=== PATIENT | female | born 1960 | race Caucasian/White ===

== ENCOUNTER 2017-01-23 12:39 | Emergency (ER) | payer MEDICARE ==
[~2017-01-23] VITALS: Ht 162.6 cm; Wt 72.6 kg
--- OUTSIDE RECORDS SUMMARY | 2017-01-23 12:47 | XMS REPORT | Continuity of Care Document ---
Author Author 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 11/22/2008 NILS NUNEZ APRN 788.41 URINARY FREQUENCY 11/22/2008 NILS NUNEZ APRN 788.63 URINARY URGENCY 11/12/2010 NILS NUNEZ APRN 627.2 SYMPTOMATIC MENOPAUSAL OR FEMALE CLIMACTERIC STATES 11/12/2010 NILS NUNEZ APRN 780.50 UNSPECIFIED SLEEP DISTURBANCE 11/12/2010 NILS NUNEZ APRN V72.31 SCOUTS EXAM, ROUTINE 11/12/2010 NILS NUNEZ APRN V76.12 MAMMOGRAM SCREENING 12/08/2010 NILS NUNEZ APRN E 278.02 OVERWEIGHT 12/08/2010 NILS NUNEZ APRN V72.60 LABORATORY EXAMINATION UNSPECIFIED 01/03/2011 NILS NUNEZ APRN 595.2 OTHER CHRONIC CYSTITIS 09/30/2011 NILS NUNEZ APRN E 682.0 CELLULITIS AND ABSCESS OF FACE 08/23/2013 NILS NUNEZ APRN E 623.5 LEUKORRHEA NOT SPECIFIED INFECTIVE Procedures Code [place] [address] UA LONG DIP 08/23 94229 CULTURE UROGENITAL 08/23/2013 31184 CULTURE URINE Results Encounters ACCT No. Visit Date/Time Discharge Status Pt. Type Provider Facility Loc./Unit Complaint [id number] 08/23/2013 13:27:00 08/23/2013 23: 59:59 CLS Outpatient NILS NUNEZ APRN
--- NOTE | 2017-01-23 14:54 | ED GI ---
General Chief Complaint: Abdominal/GI Problems Stated Complaint: UMBILICAL HERNIA/PAIN Nursing Triage Note: C/O intermittant abd pain since yesterday. Pt is concerned about a abd hernia repair that was done approx 20 yrs ago. No vomiting or diarrhea. No abdominal protrusion noted. Sepsis Screen: No Definite Risk Source of Information: Patient Exam Limitations: No Limitations History of Present Illness Time Seen By Provider: 14:54 Initial Comments 56-year-old female patient presents to the emergency department with complaints of periumbilical abdominal pain beginning yesterday. Patient does report having a previous umbilical hernia repair 20 years ago. Denies any bulges or mass. Reports pain radiates across the abdomen bilaterally in a belt-like distribution. Timing/Duration: 1 Day, Intermittent Severity/Quality: Aching, Sharp (occasionally sharp pain radiates accross the abdomen in a belt like distribution) Location: Periumbilical Activities at Onset: None Modifying Factors: Worsens With Other (denies modifying factors) Allergies and Home Medications Allergies Coded Allergies: Penicillins (Verified Allergy, Unknown, 01/23/17) Home Medications Ciprofloxacin HCl 500 Mg Tablet, 500 MG PO BID, #14 Ref 0 Prescribed by: DELMER SMITH on 01/23/171708 Metronidazole 500 Mg Tablet, 500 MG PO Q8H, #21 Ref 0 Prescribed by: DELMER SMITH on 01/23/171708 Ondansetron 8 Mg Tab.rapdis, 8 MG PO Q6H PRN for NAUSEA/VOMITING-1ST LINE, #10 Ref 1 Prescribed by: DELMER SMITH on 01/23/17 170 [isorb mono ER] , 180 PO DAILY, (Reported) Review of Systems Constitutional: No chills, No fever, No malaise Respiratory: Denies Cough, Denies Shortness of Air, Denies SOA With Exertion Cardiovascular: Denies Chest Pain, Denies Lightheadedness, Denies Palpitations Gastrointestinal: See HPI, Denies Abdomen Distended, Abdominal Pain, Denies Blood Streaked Stools, Denies Constipated, Denies Diarrhea, Denies Nausea, Denies Poor Appetite, Denies Poor Fluid Intake, Denies Rectal Bleeding, Denies Vomiting Genitourinary: Denies Burning, Denies Frequency, Denies Flank Pain, Denies Hematuria, Denies Pain Musculoskeletal: No back pain Skin: no symptoms reported Psychiatric/Neurological: No Symptoms Reported All Other Systems Reviewed Negative Unless Noted: Yes (Negative excepted noted.) Past Wevhnnm-Biunzr-Vzwqzk Hx Patient Social History Alcohol Use: Denies Use Recreational Drug Use: No Smoking Status: Never a Smoker Recent Foreign Travel: No Contact w/Someone Who Travel: No Recent Infectious Disease Expo: No Surgeries History of Surgeries: Yes (abd hernia repair/) Surgeries: Bladder Surgery Respiratory History of Respiratory Disorde: No Cardiovascular History of Cardiac Disorders: No Neurological History of Neurological Disord: No Genitourinary History of Genitourinary Disor: No Gastrointestinal History of Gastrointestinal Di: No Musculoskeletal History of Musculoskeletal Dis: No Endocrine History of Endocrine Disorders: No HEENT History of HEENT Disorders: Yes (retinitis; legally blind) Cancer History of Cancer: No Psychosocial History of Psychiatric Problem: No Reviewed Nursing Assessment Reviewed/Agree w Nursing PMH: Yes Family Medical History Significant Family History: No Pertinent Family Hx Physical Exam Vital Signs VS - Last 72 Hours, by Label 01/23/17 01/23/17 14:44 17:44 Temp 97.3 97.3 Pulse 64 66 Resp 16 16 B/P (MAP) 154/90 Pulse Ox 98 98 O2 Delivery Room Air Capillary Refill : Less Than 3 Seconds General Appearance: WD/WN, no apparent distress Respiratory: lungs clear, normal breath sounds, no respiratory distress, no accessory muscle use Cardiovascular: normal peripheral pulses, regular rate, rhythm, no edema, no murmur Peripheral Pulses: 2+ Dorsalis Pedis (R), 2+ Left Dors-Pedis (L), 2+ Radial Pulses (R), 2+ Radial Pulses (L) Gastrointestinal: normal bowel sounds, soft, no organomegaly, No distended, guarding (guarding with palpation just to the left of the umbilicus. No mass or bulge appreciated. ), No rebound, tenderness (periumbilical tenderness), No hernia, No mass Extremities: no pedal edema, normal capillary refill Back: normal inspection, no CVA tenderness Neurologic/Psychiatric: alert, normal mood/affect, oriented x 3 Skin: normal color, warm/dry Progress/Results/Core Measures Results/Orders Lab Results Laboratory Tests Test 01/23/17 15:12 01/23/17 15:50 Range/Units Urine Color YELLOW Urine Clarity SLIGHTLY CLOUDY Urine pH 5 5-9 Urine Specific [place] 1.020 1.016-1.022 Urine Protein 2+ H NEGATIVE Urine Glucose (UA) NEGATIVE NEGATIVE Urine Ketones 2+ H NEGATIVE Urine Nitrite NEGATIVE NEGATIVE Urine Bilirubin NEGATIVE NEGATIVE Urine Urobilinogen NORMAL NORMAL MG/DL Urine Leukocyte Esterase 2+ H NEGATIVE Urine RBC (Auto) 5+ H NEGATIVE Urine RBC 25-50 H /HPF Urine WBC 5-10 H /HPF Urine Squamous Epithelial Cells 10-25 H /HPF Urine Crystals NONE /LPF Urine Bacteria FEW H /HPF Urine Casts NONE /LPF Urine Mucus MODERATE H /LPF Urine Culture Indicated YES White Blood Count 7.4 4.3-11.0 10^3/uL Red Blood Count 4.70 4.35-5.85 10^6/uL Hemoglobin 14.0 11.5-16.0 G/DL Hematocrit 41 35-52 % Mean Corpuscular Volume 87 80-99 FL Mean Corpuscular Hemoglobin 30 25-34 PG Mean Corpuscular Hemoglobin Concent 34 32-36 G/DL Red Cell Distribution Width 13.5 10.0-14.5 % Platelet Count 251 130-400 10^3/uL Mean Platelet Volume 10.3 7.4-10.4 FL Neutrophils (%) (Auto) 65 42-75 % Lymphocytes (%) (Auto) 28 12-44 % Monocytes (%) (Auto) 5 0-12 % Eosinophils (%) (Auto) 2 0-10 % Basophils (%) (Auto) 0 0-10 % Neutrophils # (Auto) 4.8 1.8-7.8 X 10^3 Lymphocytes # (Auto) 2.1 1.0-4.0 X 10^3 Monocytes # (Auto) 0.4 0.0-1.0 X 10^3 Eosinophils # (Auto) 0.1 0.0-0.3 10^3/uL Basophils # (Auto) 0.0 0.0-0.1 10^3/uL Sodium Level 141 135-145 MMOL/L Potassium Level 3.4 L 3.6-5.0 MMOL/L Chloride Level 102 98-107 MMOL/L Carbon Dioxide Level 26 21-32 MMOL/L Anion Gap 13 5-14 MMOL/L Blood Urea Nitrogen 10 7-18 MG/DL Creatinine 0.85 0.60-1.30 MG/DL Estimat Glomerular Filtration Rate > 60 BUN/Creatinine Ratio 12 Glucose Level 84 70-105 MG/DL Calcium Level 9.3 8.5-10.1 MG/DL Total Bilirubin 0.8 0.1-1.0 MG/DL Aspartate Amino Transf (AST/SGOT) 21 5-34 U/L Alanine Aminotransferase (ALT/SGPT) 15 0-55 U/L Alkaline Phosphatase 73 40-136 U/L Total Protein 7.9 6.4-8.2 GM/DL Albumin 4.3 3.2-4.5 GM/DL Lipase 14 8-78 U/L My Orders Orders - DELMER SMITH Cbc With Automated Diff (01/23/17 15:08) Comprehensive Metabolic Panel (01/23/17 15:08) Lipase (01/23/17 15:08) Ua Culture If Indicated (01/23/17 15:08) Saline Lock/Iv-Start (01/23/17 15:08) Ct Abdomen/Pelvis W (01/23/17 15:08) Ns Iv 1000 Ml (Sodium Chloride 0.9%) (01/23/17 15:08) Iohexol Injection (Omnipaque 350 Mg/Ml 1 (01/23/17 15:30) Ns (Ivpb) (Sodium Chloride 0.9% Ivpb Bag (01/23/17 15:30) Pharmacy Communication (Pharmacy Communi (01/23/17 15:17) Urine Culture (01/23/17 15:12) Iohexol Injection (Omnipaque 350 Mg/Ml 1 (01/23/17 16:30) Ns (Ivpb) (Sodium Chloride 0.9% Ivpb Bag (01/23/17 16:30) Pharmacy Communication (Pharmacy Communi (01/23/17 16:16) Levofloxacin Tablet (Levaquin Tablet) (01/23/17 17:15) Medications Given in ED Vital Signs/I&O Vital Sign - Last 12Hours 01/23/17 01/23/17 14:44 17:44 Temp 97.3 97.3 Pulse 64 66 Resp 16 16 B/P (MAP) 154/90 Pulse Ox 98 98 O2 Delivery Room Air Blood Pressure Mean: 4 Diagnostic Imaging Diagonstic Imaging: CT Plain Films/CT/US/NM/MRI: abdomen, pelvis Comments FINDINGS: Lung bases are clear. Heart size is normal. Small hiatal hernia at the EG junction. Liver, gallbladder, spleen, pancreas and adrenal glands are unremarkable. Abdominal aorta is normal in contour. Kidneys are with normal enhancement. There is colonic diverticulosis of the descending and sigmoid colon. Definitive inflamed diverticula is not present. There is slight vascular engorgement, possibility of early inflammation with diverticulitis not excluded. There is a normal appendix in the right lower quadrant. No abnormal ascites or free air. Urinary bladder is relatively decompressed and unremarkable. The uterus and adnexa are unremarkable. Note is made of a right- sided transsacral stimulator. Generator pack over the left gluteal region. Leftward curvature the lumbar spine. IMPRESSION: Colonic diverticuli. Early inflammatory changes of colitis/diverticulitis is not excluded. The remainder of the examination demonstrates no acute abnormality. Dictated by: Dictated on workstation # [id number] Reviewed: Reviewed by Me (radiology report reviewed by me) Departure Communication (Admissions) Progress Notes Laboratory and diagnostic findings discussed with the patient. and patient both report patient has a long history of hematuria and has seen her PCP multiple times for this. Patient does report feeling better at this time. Plan for discharge to home with treatment for the urinary tract infection. Patient instructed to follow-up with her primary care provider a recheck and further management. Impression Impression: Primary Impression: Urinary tract infection Qualified Codes: N30.01 - Acute cystitis with hematuria Additional Impressions: Abdominal pain Qualified Codes: R10.33 - Periumbilical pain Volume depletion Disposition: HOME, SELF-CARE Condition: Improved Departure-Patient Inst. Decision time for Depature: 17:08 Referrals: FAYE CONLEY DO (PCP/Family) Primary Care Physician Patient Instructions: Acute Abdomen (Belly Pain), Adult (DC), Dehydration, Adult (DC), Urinary Tract Infection, Adult (DC) Add. Discharge Instructions: All discharge instructions reviewed with patient and/or family. Voiced understanding. Medications as instructed. Tylenol Extra Strength over-the- counter as directed for pain. Ibuprofen 800 mg by mouth every 8 hours as needed for pain. Drink plenty of fluids. Follow-up with your primary care physician this week for recheck, call for appointment time Wednesday morning. Return to the emergency department pain, fever, blood in the stool, abdominal swelling, difficulty with urination, inability to urinate, or any other concerns. Scripts Ondansetron (Ondansetron Odt) 8 Mg Tab.rapdis 8 MG PO Q6H Y for NAUSEA/VOMITING-1ST LINE, #10 TAB 1 Refill Prov: DELMER SMITH 01/23/17 Metronidazole (Metronidazole) 500 Mg Tablet 500 MG PO Q8H, #21 TAB 0 Refills Prov: DELMER SMITH 01/23/17 Ciprofloxacin HCl (Ciprofloxacin HCl) 500 Mg Tablet 500 MG PO BID, #14 TAB 0 Refills Prov: DELMER SMITH 01/23/17 DELMER SMITH Jan 23, 2017 14:54
[2017-01-23] MEDS ORDERED: ISOSORBIDE MONONITRATE PO (14:56)
[2017-01-23] MEDS ORDERED: NS IV 1000 ML 1,000 ML IV ONE (15:08)
[2017-01-23 15:25] LABS: BILIRUBIN,URINE NEGATIVE (NEGATIVE); KETONES,URINE 2+ (NEGATIVE); LEUKOCYTE ESTERASE ,URINE 2+ (NEGATIVE); NITRITE,URINE NEGATIVE (NEGATIVE); PH,URINE 5 (5-9); PROTEIN,URINE 2+ (NEGATIVE); UROBILINOGEN,URINE NORMAL (NORMAL)
[2017-01-23] MEDS ORDERED: IOHEXOL 350 MG/ML 100 ML (OMNIPAQUE 350) VIAL IV ONE ×2 (15:30→16:30)
[2017-01-23] MEDS ORDERED: NS 100 ML (IVPB) BAG IV ONE ×2 (15:30→16:30)
[2017-01-23 16:04] LABS: BASOPHILS % (AUTO) 0 % (0-10); EOSINOPHILS # (AUTO) 0.1 10^3/uL (0.0-0.3); EOSINOPHILS % (AUTO) 2 % (0-10); LYMPHOCYTES # (AUTO) 2.1 X 10^3 (1.0-4.0); LYMPHOCYTES % (AUTO) 28 % (12-44); MEAN CORPUSCULAR HEMOGLOBIN 30 PG (25-34); MEAN CORPUSCULAR HGB CONC 34 G/DL (32-36); MEAN CORPUSCULAR VOLUME 87 FL (80-99); MEAN PLATELET VOLUME 10.3 FL (7.4-10.4); MONOCYTES # (AUTO) 0.4 X 10^3 (0.0-1.0); MONOCYTES % (AUTO) 5 % (0-12); NEUTROPHILS # (AUTO) 4.8 X 10^3 (1.8-7.8); NEUTROPHILS % (AUTO) 65 % (42-75); PLATELET COUNT 251 10^3/uL (130-400); RED CELL DISTRIBUTION WIDTH 13.5 % (10.0-14.5); WHITE BLOOD COUNT 7.4 10^3/uL (4.3-11.0)
[2017-01-23 16:20] LABS: ALANINE AMINOTRANSFERASE 15 U/L (0-55); ALBUMIN 4.3 GM/DL (3.2-4.5); ANION GAP 13 MMOL/L (5-14); ASPARTATE AMINO TRANSFERASE 21 U/L (5-34); BILIRUBIN,TOTAL 0.8 MG/DL (0.1-1.0); BLOOD UREA NITROGEN 10 MG/DL (7-18); BUN/CREATININE RATIO 12; CALCIUM 9.3 MG/DL (8.5-10.1); CARBON DIOXIDE 26 MMOL/L (21-32); CHLORIDE 102 MMOL/L (98-107); CREATININE SERUM 0.85 MG/DL (0.60-1.30); GFR ESTIMATED > 60; GLUCOSE 84 MG/DL (70-105); LIPASE 14 U/L (8-78); POTASSIUM 3.4 MMOL/L (3.6-5.0); SODIUM 141 MMOL/L (135-145); TOTAL PROTEIN 7.9 GM/DL (6.4-8.2)
--- NOTE | 2017-01-23 17:00 | Diagnostic Imaging Report ---
PROCEDURE: CT abdomen and pelvis with contrast. TECHNIQUE: Multiple contiguous axial images were obtained through the abdomen and pelvis after administration of intravenous contrast. INDICATION: Pain in the abdomen near the umbilical area x 1 day. FINDINGS: Lung bases are clear. Heart size is normal. Small hiatal hernia at the EG junction. Liver, gallbladder, spleen, pancreas and adrenal glands are unremarkable. Abdominal aorta is normal in contour. Kidneys are with normal enhancement. There is colonic diverticulosis of the descending and sigmoid colon. Definitive inflamed diverticula is not present. There is slight vascular engorgement, possibility of early inflammation with diverticulitis not excluded. There is a normal appendix in the right lower quadrant. No abnormal ascites or free air. Urinary bladder is relatively decompressed and unremarkable. The uterus and adnexa are unremarkable. Note is made of a right-sided transsacral stimulator. Generator pack over the left gluteal region. Leftward curvature the lumbar spine. IMPRESSION: Colonic diverticuli. Early inflammatory changes of colitis/diverticulitis is not excluded. The remainder of the examination demonstrates no acute abnormality. Dictated by: Dictated on workstation # [id number]
[2017-01-23] MEDS ORDERED: CIPR500T4 PO (17:09)
[2017-01-23] MEDS ORDERED: METR500T21 PO (17:09)
[2017-01-23] MEDS ORDERED: ONDA8TAB13 PO (17:09)
[2017-01-23] MEDS ORDERED: LEVOFLOXACIN 500 MG TAB (LEVAQUIN) PO ONE (17:15)
[2017-01-23 17:44] VITALS: BP 162/90
== END 2017-01-23 18:21 | disposition home or self-care (01) ==
LOC: ER 12:42
DX: N39.0 Urinary tract infection, site not specified (principal); E86.9 Volume depletion, unspecified; Z98.890 Other specified postprocedural states
CPT/HCPCS: 36415; 74177; 80053; 81000; 83690; 85025; 87088; 96360